=== PATIENT | female | born 1985 ===

== ENCOUNTER 2021-04-16 11:24 | Inpatient (IN) | payer BC ==
[~2021-04-16] VITALS: Ht 160 cm; Wt 83.2 kg
[2021-04-17] VITALS (36 sets, daily range): BP systolic 106–150; BP diastolic 57–96; PULSE 59–85; TEMP 97.8–98.6
--- NOTE | 2021-04-17 07:30 | NUR ---
Patient ambulatory to [facility]3 with spouse, changed into gown, FHR/TOCO monitors placed and explained. Patient here for scheduled induction and is a . Patient denies any regular contractions/leaking of fluid/vaginal bleeding/decreased movement. Plan of care discussed. 0800: IV started in left upper arm, blood obtained and to lab, flushed. Consents done/assessment completed/postartum packet given. 0818: Pitocin induction discussed and patient agrees with plan. Pitocin started at 2mU per protocol. 0900: Roles at bedside assessing patient and FHR strip. Plan of care discussed and questions answered.
[2021-04-17] MEDS ORDERED: PRENATAL TABLET PO (08:29)
[2021-04-17] MEDS ORDERED: FISH OIL 500 M1 EAC1 PO (08:29)
[2021-04-17 10:09] LABS: BASO % 0.2 % (0.0-2.0); EOS % 0.5 % (0.0-4.0); HEMATOCRIT 40.3 % (37.0-47.0); HEMOGLOBIN 13.2 g/dl (12.5-16.0); LYMPH # 1.2 K/mm3 (1.2-3.4); LYMPH % 21.2 % (20.0-51.0); MEAN CELL VOLUME 80 fl (80.0-100.0); MEAN CORPUSCULAR HEMOGLOBIN 26 pg (27-31); MEAN CORPUSCULAR HGB CONC 33 g/dl (33.0-37.0); MEAN PLATELET VOLUME 10.8 fl (7.4-10.4); MONO # 0.4 K/mm3 (0.1-0.6); MONO % 6.6 % (1.7-9.3); PLATELET COUNT 210 K/mm3 (130-400); RED BLOOD COUNT 5.02 M/mm3 (4.10-5.30); REDCELL DISTRIBUTION WIDTH-CV 14.8 % (11.5-14.5)
--- NOTE | 2021-04-17 10:50 | NUR ---
Recurrent subtle late decelerations noted and patient being repositioned as needed.
--- NOTE | 2021-04-17 11:10 | NUR ---
Dr. Toledo at bedside and assessing patient and FHR strip. SVE per physician 3-4/70/-3 and patient refusing AROM at this time. Plan of care discussed. 1145: Patient called out and states her water broke. RN at bedside and large amount of clear fluid noted on ground and continue to leak from patient. 1210: Recurrent early/late decelerations noted, patient repositioned. SVE-4/70/-3 and patient wedged left. 1215: Patient requests epidural and L[employer]Marquis [employer] notified. 1224: Patient sitting up for epidural and L.Marquis [employer]ACHINE MECH[employer]IC at bedside. Difficulty tracing FHR due to maternal position. 1231: Test dose given and patient tolerates well. 1235: Patient repositioned and safety instructions and plan of care discussed. 1320: Recurrent subtle late decelerations noted and patient repositioned. 1330: Hernandez catheter placed and patient tolerates well. SVE-4/70/-3 and patient left lateral with right leg resting in stirrup. 1350: Patient right lateral and FHR tracing variable decelerations decreasing to 70-90 intermittently. Patient wedged left. 1425: Patient right lateral and FHR decreases to 80bpm and patinet left lateral and return to baseline of 140bpm. 1540: SVE-10/100/0 and patient updated on plan of care. 1546: Dr. Toledo notified. Hernandez catheter removed and patient tolerates well. 1555: FHR baseline 145bpm and recurrent deep variables decreasing to 55-90bmp with spontaneous return to baseline. 1603: Dr. Toledo at bedside and patient prepped for vaginal delivery. 1610: Patient begins to push with contractions. 1612: Spontaneous delivery of viable male-head and nuchal cord x1 clamped and cut by physician at perineum followed by body. Infant to patients abdomen and E. Sarath RN assumes care of infant. Cord cut by FOB. Cord blood obtained. 1617: Spontaneous delivery of placenta and pitocin started per protocol. Dr. Toledo begins to repair laceration. Fundal massage done/firm/bleeding WNL. Patient repositined/ice pack to perineum/plan of care discussed.
--- NOTE | 2021-04-17 19:10 | NUR ---
Up to bathroom with standby assist. voids small amount, performs own pericare, tucks application. Clean gown on and transferred to room via wheelchair.
[2021-04-18 06:45] VITALS: BP 126/81; PULSE 73; TEMP 97.7
[2021-04-18] MEDS ORDERED: IBU800 M1 PO (11:01)
== END 2021-04-18 18:10 | disposition home or self-care (01) | DRG 807 ==
LOC: LDR 04-17 07:10 → OB 04-17 19:30
PROVIDERS: ADMIT Obstetrics & Gynecology
PROC: 10E0XZZ Delivery of Products of Conception, External Approach (ICD-10-PCS; principal; 2021-04-17)
PROC: 0KQM0ZZ Repair Perineum Muscle, Open Approach (ICD-10-PCS; 2021-04-17)
PROC: 3E033VJ Introduction of Other Hormone into Peripheral Vein, Percutaneous Approach (ICD-10-PCS; 2021-04-17)
PROC: 0UQMXZZ Repair Vulva, External Approach (ICD-10-PCS; 2021-04-17)
DX: O34.211 Maternal care for low transverse scar from previous cesarean delivery (principal); Z37.0 Single live birth; O75.89 Other specified complications of labor and delivery; D56.3 Thalassemia minor; O70.1 Second degree perineal laceration during delivery; O71.82 Other specified trauma to perineum and vulva; Z3A.40 40 weeks gestation of pregnancy
CPT/HCPCS: J2590; J7120

== ENCOUNTER → 2021-05-27 | Outpatient (CLI) | payer BC ==
[~2021-05-27] MED LIST: FISH OIL 500 M1 EAC1 PO; IBU800 M1 PO; PRENATAL TABLET PO
--- NOTE | 2021-05-27 13:49 | NUR ---
Pt, Nadiya Marcus, presents for an outpatient consult with 5.5 week old baby boy, Sue Fuchs, to evaluate . Pt reports Sue takes an hour to breastfeed. Sue was born on [birth year] and weighed 8# 2.9oz (3710 gms). Pt reports he had a tongue tie released at about 3 weeks of age because of sore nipples and slow feedings. This has helped the soreness but the long feedings continue. Current feeding plan is pumping and bottle feeding at four of the daytime feeds, and at evening and night time. Sue gets 4oz of EBM or formula at the four bottle feeds and he directly breastfeeds q 2-3 hours for the remainder of the evening and noc. Pt pump qs for bottle feedings. Today Sue weighs 10# 6.4oz (4666 gms). Pt places baby to breast, Sue latches to just the nipple. Pt is assisted and advised on how to get more areola into his mouth for better milk transfer and more comfortable feedings. Sue's tongue is observed to cup the nipple appropriatley. Once latched well Sue has frequent swallows. He does become fidgetty and slides back on the nipple with let-down. At the second breast Sue is more resistant to maintaining a deep latch, especially when he coughed and had milk coming out his mouth and both nostrils. Also of note, when Sue is remaining latched he has retractions at the base of his neck and stridor is noted. After nursing for a total of 40 minutes, less than half with nutrative effort, Sue had a weight gain of 2.5oz (72 gms). LC and pt discuss that it appears Sue has difficulty with coordination of [id number], especially with a proper latch and let-down. This is likely leading him to shallow latch and slow/low milk transfer. She is advised on laid back nursing and side lying to help him manage milk flow better. She is also encouraged to schedule an appointment with Dr. Andujar to discuss the retractions and stridor noted with feeding. Additionally, she is encouraged to continue with partial bottle feedings of EBM due to the low side of average rate of weight gain (4.6oz/7 days). Since his last appt with Dr. Andujar pt has tried more and less bottle feedings. POC: Follow up with Dr. Andujar re: retractions and stridor. Continue mixed feeds with EBM by bottle to ensure continued weight gain. Pt verbalizes understanding. Questions invited and answered.
== END ==
LOC: LAC 12:30
DX: Z39.1 Encounter for care and examination of lactating mother (principal); Z71.89 Other specified counseling